=== PATIENT | male | born 1980 | race African-American/Black ===

== ENCOUNTER 2016-06-16 10:49 | Emergency (ER) | payer OTHER ==
[2016-06-16 10:59] VITALS: BP 158/89; PULSE 85; TEMP 98.1; BMI 24.7
[2016-06-16] MEDS ORDERED: IBUPROFEN 400 MG TABLET (FP) PO ONE ×2 (11:40→11:45)
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
== END 2016-06-16 14:18 | disposition home or self-care (01) ==
LOC: JERFT 10:49
PROC: 2W3DX1Z Immobilization of Left Lower Arm using Splint (ICD-10-PCS; principal; 2016-06-16)
DX: S62.641A Nondisplaced fracture of proximal phalanx of left index finger, initial encounter for closed fracture (principal); V48.3XXA Unspecified car occupant injured in noncollision transport accident in nontraffic accident, initial encounter; Y92.9 Unspecified place or not applicable; J45.909 Unspecified asthma, uncomplicated; F17.210 Nicotine dependence, cigarettes, uncomplicated
CPT/HCPCS: 29125; 73130-TC-LT; 99281-25

== ENCOUNTER 2016-10-22 14:20 | Emergency (ER) | payer SELFPAY ==
[2016-10-22 14:39] VITALS: BP 143/79; PULSE 83; TEMP 98.6; BMI 24.9
--- NOTE | 2016-10-22 14:42 | PDOC ---
History of Present Illness - General Chief Complaint: Rash Stated Complaint: RASH Time Seen by Provider: 10/22/16 14:41 History Source: Patient Exam Limitations: No Limitations - History of Present Illness Initial Comments: CHIEF COMPLAINT: 36 y/o afebrile male with no significant PMH c/o itchy rash to left side of neck x 3 months. HISTORY OF PRESENT ILLNESS: The patient states the rash was on both sides of his neck for a while. He has been applying OTC hydrocortisone cream and the rash went away on the right side of his neck. Left side remains. He denies f/c , n/v/d, cough, CP, SOB, facial swelling, tongue swelling, exposure to new soaps /dyes/detergents/medications. Vital signs on arrival are within normal limits. REVIEW OF SYSTEMS: GENERAL/CONSTITUTIONAL: No fever/chills. No weakness. No weight change. HEAD, EYES, EARS, NOSE AND THROAT: No change in vision. No ear pain or discharge. No sore throat. CARDIOVASCULAR: No chest pain or shortness of breath. SKIN: +itchy rash to left side of neck. NEUROLOGIC: No headache, vertigo, loss of consciousness, or loss of sensation. PHYSICAL EXAM: GENERAL: The patient is awake, alert, and fully oriented, in no acute distress. HEAD: Normal with no signs of trauma. NECK: Skin colored, non raised rash to left side of neck ENT: Pupils equal, round and reactive to light, extraocular movements intact, sclera anicteric, conjunctiva clear. No facial or tongue swelling NEUROLOGICAL: Normal speech, normal gait. CN II-XII grossly intact. SKIN: Warm, dry, normal turgor, no rashes or lesions noted. Past History - Past Medical History Allergies/Adverse Reactions: Allergies Allergy/AdvReac Type Severity Reaction Status Date / Time No Known Allergies Allergy Verified 10/22/16 14:34 Home Medications: Ambulatory Orders Hydrocortisone 2.5% Topical Cr [Anusol-Hc -] 1 applic RC BID #1 tube 10/22/16 Asthma: Yes GI Disorders: Yes (PANCREATITIS) - Psycho/Social/Smoking Cessation Hx Suicidal Ideation: No Smoking History: Current every day smoker Have you smoked in the past 12 months: Yes Number of Cigarettes Smoked Daily: 12 Information on smoking cessation initiated: No *Physical Exam - Vital Signs Last Vital Signs Temp Pulse Resp BP Pulse Ox 98.6 F 83 19 143/79 98 10/22/16 14:34 10/22/16 14:34 10/22/16 14:34 10/22/16 14:34 10/22/16 14:34 Medical Decision Making - Medical Decision Making A/P: 36 y/o afebrile male with localized pruritic rash to neck. Will send rx for 2.5% hydrocortisone cream. Instructed him to use for 1 week and if no improvement f/u with Dr. Tejeda. Pt instructed to return to the ER with any worsening or concerning symptoms. The patient verbalizes understanding of all instructions, has no further questions and is awaiting discharge. *DC/Admit/Observation/Transfer Diagnosis at time of Disposition: Rash and nonspecific skin eruption - Discharge Dispostion Disposition: HOME Condition at time of disposition: Good - Prescriptions Prescriptions: Hydrocortisone 2.5% Topical Cr [Anusol-Hc -] 1 applic RC BID #1 tube - Referrals Referrals: Denisse Jordan MD [Primary Care Provider] - Sabrina Tejeda MD [Staff Physician] - 1 week - Patient Instructions Printed Discharge Instructions: DI for Rash Additional Instructions: Discharge Instructions: -A prescription for hydrocortisone cream was sent to your pharmacy; please use as prescribed -If no improvement in rash in 1 week, please follow up with Dr. Tejeda -Return to the ER with any worsening or concerning symptoms
== END 2016-10-22 15:38 | disposition home or self-care (01) ==
LOC: JERFT 14:20
DX: R21 Rash and other nonspecific skin eruption (principal); J45.909 Unspecified asthma, uncomplicated
CPT/HCPCS: 99281-25